=== PATIENT | female | born 1980 | race Two or more races ===

== ENCOUNTER 2019-07-25 08:35 | Day surgery (SDC) | payer OTHER | END 2019-07-25 14:05 | disposition home or self-care (01) | LOC: AMB-ENDOS 08:35 | DX: K57.30 Diverticulosis of large intestine without perforation or abscess without bleeding (principal); K63.89 Other specified diseases of intestine ==

== ENCOUNTER 2021-09-13 07:13 | Outpatient (CLI) | payer OTHER | END 2021-09-13 07:26 | disposition home or self-care (01) | LOC: RAD 07:13 | PROVIDERS: ATTEND Surgery | DX: K59.09 Other constipation (principal); K57.30 Diverticulosis of large intestine without perforation or abscess without bleeding; Z86.010 Personal history of colon polyps ==

== ENCOUNTER → 2021-10-18 08:00 | Outpatient (CLI) | payer OTHER | END | disposition home or self-care (01) | LOC: LAB 08:00 → ADM 13:00 → EDSTATUS 10-21 13:00 → AMB-ENDOS 10-21 13:00 | PROVIDERS: ATTEND Surgery | DX: K59.09 Other constipation (principal); K57.30 Diverticulosis of large intestine without perforation or abscess without bleeding; Z86.010 Personal history of colon polyps; Z20.828 Contact with and (suspected) exposure to other viral communicable diseases ==

== ENCOUNTER 2021-11-27 09:49 | Outpatient (CLI) | payer OTHER | END 2021-11-27 10:08 | disposition home or self-care (01) | LOC: LAB 09:49 | PROVIDERS: ATTEND Surgery | DX: Z03.818 Encounter for observation for suspected exposure to other biological agents ruled out (principal) ==

== ENCOUNTER 2021-11-29 07:32 | Day surgery (SDC) | payer OTHER | END 2021-11-29 13:06 | disposition home or self-care (01) | LOC: AMB-ENDOS 07:32 | PROVIDERS: ATTEND Surgery | DX: K57.30 Diverticulosis of large intestine without perforation or abscess without bleeding (principal); Z20.822 Contact with and (suspected) exposure to COVID-19 ==